=== PATIENT | female | born 1990 | race Caucasian/White ===

== ENCOUNTER 2017-01-02 19:46 | Emergency (ER) | payer OTHER ==
[~2017-01-02] VITALS: Ht 162.6 cm; Wt 68.0 kg
[~2017-01-02 19:46] MED LIST: PNV11TAB PO
[2017-01-02] MEDS ORDERED: NORE1PAT7 TD (19:52)
[2017-01-02] MEDS ORDERED: HYDROCODONE/ACETAMINOPHEN 5-325 MG TABLET PO ONE (20:45)
[2017-01-02] MEDS ORDERED: IBUPROFEN 600 MG TABLET PO ONE (20:45)
[2017-01-02 23:14] VITALS: BP 112/65
== END 2017-01-02 23:14 | disposition home or self-care (01) ==
LOC: EMS 19:49
DX: S93.601A Unspecified sprain of right foot, initial encounter (principal); X58.XXXA Exposure to other specified factors, initial encounter; Y93.89 Activity, other specified; Y92.89 Other specified places as the place of occurrence of the external cause; Y99.8 Other external cause status
CPT/HCPCS: 29515; 99284